=== PATIENT | female | born 1985 | race Caucasian/White ===

== ENCOUNTER 2024-11-30 08:45 | Outpatient (AMB) | payer OTHER, SELFPAY ==
--- NOTE | 2024-11-30 08:46 | A.OFFPC_ITS ---
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 Hypothyroidism: - History of thyroidectomy in [id number], currently on levothyroxine 224 mcg daily. Elevated Blood Pressure: - Noted during the visit, attributed to nervousness; no formal diagnosis of hypertension. Fatigue: - Reports persistent fatigue, unsure of cause; potential thyroid dysfunction or other deficiencies considered. Snoring: - Long-standing history of snoring since childhood; no prior evaluation or sleep study conducted. Impacted Earwax: - Right ear impacted with cerumen, affec ting visualization of the eardrum. Review of Systems - General: Reports fatigue, denies recen t weight loss or fever. - HEENT: Reports snoring, denies headach es upon waking. - Cardiovascular: Denies chest pain or p alpitations. - Respiratory: Denies dyspnea or cough. - Gastrointestinal: Denies constipation. 10-point ROS reviewed and negative excep t as noted in HPI Past Medical History - Hypothyroidism, post-thyroidectomy in 5927-2429. - Right hip pinning surgery at age 15 du e to hip dislocation. - Adenoidectomy in childhood due to recu rrent ear infections. Health Maintenance - Recommended home sleep study to evalua te for sleep apnea. - Referral to a dishwashing machine repairer for weight management. - Comprehensive metabolic panel and thyr oid function tests planned. Physical Exam General: Well-appearing, in no acute distress. Vital signs: Elevated blood pressure noted, possibly due to nervousness. HEENT: Normocephalic, atraumatic. PERRLA, EOMI. Conjunctiva clear, sclera anicteric. Oropharynx clear, mucous membranes moist. Right ear with impacted ear wax, TMs not visible on the right side. Neck: Supple, no lymphadenopathy, no thyromegaly, no JVD or carotid bruits. Cardiovascular: RRR, normal S1/S2, no murmurs, rubs, or gallops. Peripheral pulses 2+ and symmetric. No edema. Respiratory: Lungs clear to auscultation bilaterally, no wheezes, rales, or rhonchi. Normal effort. Abdomen: Soft, non-tender, non-distended. Normoactive bowel sounds. No hepatosplenomegaly, no masses. MSK: Full range of motion, no joint swelling or deformity. Normal gait. History of right hip pinning due to dislocation. Skin: Warm, dry, intact. No rashes, lesions, or pallor. Multiple birthmarks noted, especially on the back. Neuro: Alert and oriented x3. Cranial nerves II-XII intact. Strength 5/5 throughout. Sensation intact. Reflexes 2+ symmetric. Normal coordination and gait. Psych: Appropriate mood and affect. Normal judgment and insight. Reports feeling tired and recent headaches, mostly towards the end of the day. Reports snoring since childhood. Plan 1. Hypothyroidism - Continue current levothyroxine dosage; monitor thyroid function tests. 2. Elevated Blood Pressure - Monitor blood pressure; consider lifes tyle modifications if persistent. 3. Fatigue - Conduct comprehensive metabolic panel and thyroid function tests to identify potential causes. 4. Snoring - Recommend home sleep study to assess f or sleep apnea. 5. Impacted Earwax - Prescribe ear drops to soften cerumen; follow-up for ear cleaning. Discussion Notes During the visit, we discussed the importance of evaluating the patient's fatigue and snoring, potentially linked to sleep apnea. I recommended a home sleep study to assess for sleep apnea, which can contribute to fatigue and other health issues. We also talked about the need to monitor thyroid function and blood pressure, considering lifestyle modifications if necessary. The patient was informed about the impacted earwax and the use of ear drops to address it. We also discussed the referral to a dishwashing machine repairer for weight management and the importance of regular follow-up visits to monitor her health status. Patient was informed and verbally consented to the use of an ambient scribe for clinic note documentation during this visit. Patient Instructions - Continue taking levothyroxine as presc ribed. - Use prescribed ear drops to soften ear wax; follow-up for ear cleaning. - Schedule and complete the home sleep s tudy. - Monitor blood pressure at home and rep ort any persistent elevations. - Follow up with a dishwashing machine repairer for weig ht management. - Return for follow-up visit in two week s to review test results and progress. Total time spent caring for the patient today was 30 minutes. This includes , time spent documenting,medications, performing a medically necessary evaluation, counseling on diagnoses, care coordination, ordering appropriate tests. PFSH Family History (Updated 11/30/24 @ 08:56 by Ofe Arredondo MA) Father High blood pressure Mother High blood pressure Breast cancer Social History (Updated 11/30/24 @ 08:57 by Ofe Arredondo MA) Housing: House Alcohol intake: current Alcohol intake frequency: a few times a month Patient Tobacco Use Status: Never used Tobacco service: No Current occupational status: employed Cognitive needs: No Hearing needs: No Vision needs: Yes (rx glasses) Questionnaire PHQ-9 Over the last 2 weeks, how often have you been bothered by any of the following problems? 1. Little interest or pleasure in doing things: not at all 2. Feeling down, depressed, or hopeless: not at all 3. Trouble falling or staying asleep, or sleeping too much: not at all 4. Feeling tired or having little energy: several days 5. Poor appetite or overeating: not at all 6. Feeling bad about yourself - or that you are a failure or have let yourself or your family down: not at all 7. Trouble concentrating on things, such as reading the newspaper or watching television: not at all 8. Moving or speaking so slowly that other people could have noticed. Or the opposite - being so fidgety or restless that you have been moving around a lot more than usual: not at all 9. Thoughts that you would be better off or of hurting yourself in some way: not at all Total score: 1 Source: Developed by Drs. Dannie Reilly, Isabel Moeller, Rodrigo Bass and colleagues, with an educational bruce from [employer]. Thrive Questionnaire Date Thrive assessed: 11/30/24 I am a: Patient What is your living situation today?: I have a steady place to live Within the past 12 months, did the food you bought not last and you didn't have the money to get more?: Never true Within the past 12 months, did you worry whether your food would run out before you got money to buy more?: Never true Do you have trouble paying for medicines?: No Do you have trouble getting transportation to medical appointments?: No Do you have trouble paying your heating and electricity bill?: No Do you have trouble taking care of your child, family member or friend?: No Do you have trouble with day-to-day activities such as bathing, preparing meals, shopping, managing finances, etc.?: No Are you currently unemployed and looking for a job?: No Are you interested in more education?: No Please select the resources that you would like help with: None Currently or been in a relationship where the following occur: No concerns reported THRIVE Score: 0 AUDIT C Alcohol Use Questionnaire (AUDIT-C) 1. How often do you have a drink containing alcohol?: Monthly or less 2. How many drinks containing alcohol do you have on a typical day when you are drinking?: 1 or 2 3. How often do you have six or more drinks on one occasion?: Less than monthly Total Score: 2 LAMBERT-7 AMB Questionnaire LAMBERT-7 Date LAMBERT - 7 assessed: 11/30/24 Feeling nervous, anxious, or on edge: 1 = Several days Not being able to stop or control worryin = Not at all Worrying too much about different things: 0 = Not at all Trouble relaxin = Not at all Being so restless that it is hard to sit still: 0 = Not at all Becoming easily annoyed or irritable: 0 = Not at all Feeling afraid as if something awful might happen: 0 = Not at all Total LAMBERT-7 score (0-4 normal; 5-9 mild; 10-14 moderate; 15-21 severe): 1 Source: Developed by Drs. Dannie Reilly, Isabel Moeller, Rodrigo Bass and colleagues, with an educational bruce from [employer]. Physical exam (Primary Care) Vital Signs: Last Vital Signs Temp 98 F 11/30/24 08:50 Pulse 75 11/30/24 08:50 Resp 16 11/30/24 08:50 BP 166/96 H 11/30/24 08:50 Pulse Ox 98 11/30/24 08:50 Oxygen Delivery Method Room Air 11/30/24 08:50 BMI result Body Mass Index 40.2 Tobacco/Smoking Status: Tobacco use Status Tobacco use date assessed 11/30/24 11/30/24 08:49 Patient Tobacco Use Status Never used Tobacco 11/30/24 08:57 PHQ-9: PHQ-9 Score PHQ-9: Total score 1 11/30/24 08:49 Thrive Assessment: Date of Thrive Assessment Date Thrive assessed 11/30/24 11/30/24 08:49 Currently or been in a relationship where the following occur: No concerns reported Coding Level of Care Code New Pt Level 4 (59478) Diagnoses Hypothyroidism (acquired) E03.9 Snoring R06.83 Fatigue R53.83 Elevated blood pressure reading R03.0 Impacted cerumen of right ear H61.21 Morbidly obese E66.01 History of tympanostomy tube placement Z96.22 History of orthopedic surgery Z98.890 Assessment & Plan Assessment & Plan (1) Hypothyroidism (acquired): Code(s): E03.9 - Hypothyroidism, unspecified (2) Snoring: Code(s): R06.83 - Snoring (3) Fatigue: Code(s): R53.83 - Other fatigue (4) Elevated blood pressure reading: Code(s): R03.0 - Elevated blood-pressure reading, without diagnosis of hypertension (5) Impacted cerumen of right ear: Code(s): H61.21 - Impacted cerumen, right ear (6) Morbidly obese: Code(s): E66.01 - Morbid (severe) obesity due to excess calories (7) History of tympanostomy tube placement: Code(s): Z96.22 - Myringotomy tube(s) status (8) History of orthopedic surgery: Code(s): Z98.890 - Other specified postprocedural states Plan Orders: Orders Comprehensive Met. Panel Today Z13.9 - Encounter for screening, unspecified Hemoglobin A1c Today Z13.9 - Encounter for screening, unspecified Hepatitis C Antibody Today Z13.9 - Encounter for screening, unspecified HIV Ab/Ag Today Z13.9 - Encounter for screening, unspecified TSH reflex Free T4 Today Z13.9 - Encounter for screening, unspecified UA CC w/rflx Micro + Cult Today Z13.9 - Encounter for screening, unspecified Vitamin B12 and Folate Today Z13.9 - Encounter for screening, unspecified RT home sleep study Today E66.01 - Morbid (severe) obesity due to excess calories, R06.83 - Snoring, R53.83 - Other fatigue, T50.B95A - Adverse effect of other viral vaccines, initial encounter, Z13.9 - Encounter for screening, unspecified Complete Blood Count Auto Diff Today Z13.9 - Encounter for screening, unspecified Hepatitis B Surface Antibody Today Z13.9 - Encounter for screening, unspecified Hepatitis B Surface Antigen Today Z13.9 - Encounter for screening, unspecified Lipid Panel Today Z13.9 - Encounter for screening, unspecified Magnesium Today Z13.9 - Encounter for screening, unspecified Vitamin D 1,25 dihydroxy Today Z13.9 - Encounter for screening, unspecified Referrals Nutrition/Dietitian Referral E66.01 - Morbid (severe) obesity due to excess calories Medical Weight Management Referral E66.01 - Morbid (severe) obesity due to excess calories Medications: New carbamide peroxide 6.5% (Debrox) 5 drps otic (ears) Q12H 15 mL 0RF 4 days
[2024-11-30 08:50] VITALS: BP 166/96; PULSE 75; RESP 16; TEMP 36.6; O2SAT 98; BMI 40.2
== END 2024-11-30 09:20 | disposition home or self-care (01) ==
LOC: HO.HMCFMS 08:46
PROVIDERS: Visit Provider Student in an Organized Health Care Education/Training Program
DX: E03.9 Hypothyroidism, unspecified (principal); R06.83 Snoring; R53.83 Other fatigue; R03.0 Elevated blood-pressure reading, without diagnosis of hypertension; H61.21 Impacted cerumen, right ear; E66.01 Morbid (severe) obesity due to excess calories; Z96.22 Myringotomy tube(s) status; Z98.890 Other specified postprocedural states

== ENCOUNTER 2024-11-30 08:45 | Outpatient (REF) | payer MEDICAID, SELFPAY ==
--- OUTSIDE RECORDS SUMMARY | 2024-11-30 10:40 | XMS_ITS ---
Author Name [facility] Organization Unknown Care Team Organization Name Specialty Phone Email Start Date End Da te [facility] Termed, PROVIDER Primary Care 01/02/202209/25
[2024-11-30 13:32] LABS: MANUAL DIFF FLAG NO
[2024-11-30 13:44] LABS: Hematocrit 37.1 % (37.0-47.0); Hemoglobin 12.3 g/dl (12.0-16.0); Imm Gran Abs Auto 0.01 X10*3/uL (0.00-0.03); Imm Gran Pct Auto 0.2 % (0.0-0.4); Lymphocytes Absolute Auto 1.3 X10*3/uL (1.2-4.9); Mean Corpuscular HGB Conc 33.2 g/dl (31.0-35.0); Mean Corpuscular Hemoglobin 27.9 pg (27.0-33.0); Mean Corpuscular Volume 84.1 fL (80.0-98.0); NRBC Abs Auto 0.000 X10*3/uL (0.0-0.012); NRBC Pct Auto 0.0 /100WBC (0.0-0.2); Platelet Count 210 X10*3/uL (160-400); Red Blood Count 4.41 X10*6/uL (4.20-5.50); White Blood Count 5.2 X10*3/uL (4.8-10.8)
[2024-11-30 14:10] LABS: Appearance Urine Clear; Glucose Urine UA Negative (Negative); PH 7.0 (5.0-9.0); Specific Gravity - Urine 1.015 (1.005-1.025)
[2024-11-30 14:14] LABS: Alanine Aminotransferase 12 U/L (0-31); Albumin Level 4.2 g/dL (3.5-5.0); Alkaline Phosphatase 36 U/L (39-117); Anion Gap 10 (12-20); Aspartate Amino Transferase 20 U/L (5-31); Blood Urea Nitrogen 12 mg/dL (9-16); Calcium 8.5 mg/dL (8.4-10.2); Carbon Dioxide 28 mmol/L (22-29); Chloride 105 mmol/L (96-108); Cholesterol 202 mg/dL (<200); Estimated Glomerular Filt Rate > 60; HDL Cholesterol 44 mg/dL (>40); Magnesium 1.9 mg/dL (1.6-2.6); Potassium 3.8 mmol/L (3.3-5.1); Sodium 139 mmol/L (135-145); Total Protein 7.2 g/dL (6.5-8.0); Triglycerides 81 mg/dL (<150)
[2024-11-30 14:45] LABS: Folate 10.3 ng/mL (> or = 4.0); Vitamin B12 364 pg/mL (200-900)
[2024-12-01 08:14] LABS: HBS Num1 0.45 mIU/mL (0-7.99); HBsAGNum1 0.45 S/CO (0.00-0.99); HIV Num 1 0.06 S/CO (0.00-0.99); Hepatitis B Surface Antigen Negative (Negative); ~HepC Num1 0.13 S/CO (0.00-0.79); ~Hepatitis B Surface Antibody NONREACTIVE (Nonreactive); ~Hepatitis C Antibody Nonreactive (Nonreactive)
[2024-12-06 08:03] LABS: VITAMIN D (1,25 OH) D3 23 pg/mL; Vit D (1,25-Dihydroxy) Total 23 pg/mL (18-72); Vitamin D (1,25 OH) D2 <8 pg/mL
== END 2024-11-30 08:46 | disposition home or self-care (01) ==
LOC: HO.HKASLDS 08:45
PROVIDERS: PCP Student in an Organized Health Care Education/Training Program; Visit Provider Student in an Organized Health Care Education/Training Program
DX: Z13.9 Encounter for screening, unspecified (principal); R06.83 Snoring; R53.83 Other fatigue; E66.01 Morbid (severe) obesity due to excess calories; R03.0 Elevated blood-pressure reading, without diagnosis of hypertension; H61.21 Impacted cerumen, right ear; Z96.22 Myringotomy tube(s) status; Z98.890 Other specified postprocedural states; Z68.41 Body mass index [BMI] 40.0-44.9, adult
CPT/HCPCS: 36415; 80053; 80061; 81003; 82607; 82652; 82746; 83036; 83735; 84443; 85025; 86706; 86803; 87340; 87389

== ENCOUNTER 2025-01-06 12:46 | Outpatient (AMB) | payer OTHER, SELFPAY ==
--- NOTE | 2025-01-06 12:52 | A.OFFPC_ITS ---
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 Hypercholesterolemia: Recent non-fasting bloodwork showed a total cholesterol of 202 mg/dL and LDL cholesterol of 142 mg/dL. Cerumen Impaction: The patient was previously prescribed ear drops for an ear blockage but did not use them due to a temporary lapse in her insurance coverage. Medications: - Ear drops for cerumen impaction, presc ribed at a prior visit but not used. Social History: - Diet: May include daily intake of cynthia se and eggs. - Insurance: The patient experienced a t emporary cancellation of her insurance, which has since been reinstated. Diagnostic Results: - CBC: White blood cells, red blood cell s, hemoglobin, and platelets are normal. - CMP: Sodium, potassium, chloride, mary beth l function, calcium, magnesium, liver function, and total proteins are normal. - Hemoglobin A1c: Normal range, ruling o ut prediabetes and diabetes. - Lipid Panel (non-fasting): Triglycerid es 81 mg/dL, total cholesterol 202 mg/ dL, LDL cholesterol 142 mg/dL, HDL cholesterol >40 mg/dL. - Vitamin B12: 364. - Vitamin D: Normal. - Folate: Normal. - Thyroid function: Normal. - Urinalysis: Normal. - Infectious Disease Screen: Negative fo r Hepatitis B, Hepatitis C, and HIV. Past Medical History - Cerumen impaction of the ear. Health Maintenance - Lab results reviewed, with most findin gs within normal limits. - Dietary counseling provided to reduce daily intake of cheese and eggs in response to borderline high cholesterol levels. - Screening for Hepatitis B, Hepatitis C , and HIV were negative. [facility] Medical History (Updated 01/06/25 @ 20:47 by Madhu Marcelino MD) Morbid obesity due to excess calories Hypercholesterolemia Family History Father High blood pressure Mother High blood pressure Breast cancer Social History (Updated 01/06/25 @ 12:53 by Yon Garcia CMA) Housing: House Alcohol intake: current Alcohol intake frequency: a few times a month Patient Tobacco Use Status: Never used Tobacco service: No Current occupational status: employed Cognitive needs: No Hearing needs: No Vision needs: Yes (rx glasses) Questionnaire Thrive Questionnaire Date Thrive assessed: 11/30/24 I am a: Patient What is your living situation today?: I have a steady place to live Within the past 12 months, did the food you bought not last and you didn't have the money to get more?: Never true Within the past 12 months, did you worry whether your food would run out before you got money to buy more?: Never true Do you have trouble paying for medicines?: No Do you have trouble getting transportation to medical appointments?: No Do you have trouble paying your heating and electricity bill?: No Do you have trouble taking care of your child, family member or friend?: No Do you have trouble with day-to-day activities such as bathing, preparing meals, shopping, managing finances, etc.?: No Are you currently unemployed and looking for a job?: No Are you interested in more education?: No Please select the resources that you would like help with: None Currently or been in a relationship where the following occur: No concerns reported THRIVE Score: 0 LAMBERT-7 AMB Questionnaire LAMBERT-7 Date LAMBERT - 7 assessed: 11/30/24 Source: Developed by Drs. Dannie Reilly, Isabel Moeller, Rodrigo Bass and colleagues, with an educational bruce from [employer]. Review of Systems Narrative Review of Systems 10-point ROS reviewed and negative except as noted in HPI Physical exam (Primary Care) Vital Signs: Last Vital Signs Temp 98 F 01/06/25 12:53 Pulse 67 01/06/25 12:53 BP 142/93 H 01/06/25 12:53 Pulse Ox 100 01/06/25 12:53 Oxygen Delivery Method Room Air 01/06/25 12:53 BMI result Body Mass Index 40.0 Tobacco/Smoking Status: Tobacco use Status Tobacco use date assessed 11/30/24 01/06/25 12:56 Patient Tobacco Use Status Never used Tobacco 01/06/25 12:56 Thrive Assessment: Date of Thrive Assessment Date Thrive assessed 11/30/24 01/06/25 12:56 Currently or been in a relationship where the following occur: No concerns reported Narrative Physical Exam General: Well-appearing, in no acute distress. Vital signs: Within normal limits. HEENT: Normocephalic, atraumatic. PERRLA, EOMI. Conjunctiva clear, sclera anicteric. Oropharynx clear, mucous membranes moist. TMs intact bilaterally, but ear blockage noted. Patient advised to use ear drops, five drops in the morning and five drops at night, to break up the blockage. Neck: Supple, no lymphadenopathy, no thyromegaly, no JVD or carotid bruits. Cardiovascular: RRR, normal S1/S2, no murmurs, rubs, or gallops. Peripheral pulses 2+ and symmetric. No edema. Respiratory: Lungs clear to auscultation bilaterally, no wheezes, rales, or rhonchi. Normal effort. Abdomen: Soft, non-tender, non-distended. Normoactive bowel sounds. No hepatosplenomegaly, no masses. MSK: Full range of motion, no joint swelling or deformity. Normal gait. Skin: Warm, dry, intact. No rashes, lesions, or pallor. Neuro: Alert and oriented x3. Cranial nerves II-XII intact. Strength 5/5 throughout. Sensation intact. Reflexes 2+ symmetric. Normal coordination and gait. Psych: Appropriate mood and affect. Normal judgment and insight. Coding Level of Care Code Est Pt Level 3 (79402) Diagnoses Hypercholesterolemia E78.00 Impacted cerumen of right ear H61.21 Acquired hypothyroidism E03.9 Morbid obesity E66.01 Morbid obesity due to excess calories E66.01 Elevated blood pressure reading R03.0 Assessment & Plan Assessment & Plan (1) Hypercholesterolemia: Code(s): E78.00 - Pure hypercholesterolemia, unspecified Category: Medical (2) Impacted cerumen of right ear: Code(s): H61.21 - Impacted cerumen, right ear (3) Acquired hypothyroidism: Code(s): E03.9 - Hypothyroidism, unspecified (4) Morbid obesity: Code(s): E66.01 - Morbid (severe) obesity due to excess calories (5) Morbid obesity due to excess calories: Code(s): E66.01 - Morbid (severe) obesity due to excess calories Category: Medical (6) Elevated blood pressure reading: Code(s): R03.0 - Elevated blood-pressure reading, without diagnosis of hypertension Category: Medical Plan Consent Patient was informed and verbally consented to the use of an ambient scribe for clinic note documentation during this visit. Plan 1. Hypercholesterolemia - The patient's non-fasting total cholesterol was 202 mg/dL and LDL was 142 mg/dL. - Advised to reduce daily dietary intake of cheese and eggs. - Reassured the patient that her numbers are likely lower in a fasting state and not significantly concerning at this time. 2. Cerumen Impaction - Will resend the prescription for ear drops. - Instructed the patient to use five drops in the affected ear in the morning and five drops at night to soften the impaction. - A follow-up visit is planned for manual removal of the cerumen after a five- day course of drops. - The process may require a second session of drops and removal to clear the impaction completely and avoid injury. 3. Follow-Up On Referrals - The patient's prior referrals should have been received by the specialists despite the temporary insurance cancellation. - Staff will provide the patient with the specialists' phone numbers to facilitate scheduling. Discussion Notes I reviewed the patient's recent lab results with her and noted that the overall picture is great. We discussed her non-fasting lipid panel, which showed a total cholesterol of 202 and LDL of 142, and I explained that these values are likely lower in a fasting state. I recommended she reduce her daily intake of cheese and eggs but reassured her the numbers are not overly concerning. Upon examination, I confirmed a cerumen impaction in her ear. I will resend the prescription for ear drops and instructed her to use five drops in the morning and five at night for five days to soften the wax. I explained that she should return for removal and that the procedure might require more than one session to complete safely. We also discussed outstanding referrals, and I clarified that they should have been received by the specialists despite her previous insurance issues. I informed her that my staff would provide the necessary contact numbers for her to follow up. Patient Instructions - Your overall lab results are great. - Your cholesterol level was slightly high on this test, but you had eaten before the test. I recommend cutting down on daily cheese and fried eggs. - I am resending the prescription for your ear drops. Use five drops in the blocked ear in the morning and five drops at night for five days. - After using the drops for five days, please return to the office so I can remove the earwax. This may take more than one visit. - My office staff will give you the phone numbers for the specialist referrals. Please call them to schedule your appointments. Medical Decision Making The patient is a 39-year-old female presenting for a follow-up visit to review lab results. The majority of her laboratory findings, including a complete blood count, comprehensive metabolic panel, HbA1c, and vitamin levels, are within normal limits, indicating a good overall state of health. Her non-fasting lipid panel showed a total cholesterol of 202 mg/dL and an LDL of 142 mg/dL, which are borderline elevated. Given the non-fasting status of the sample, these values are likely overestimated, and pharmacological intervention is not warranted at this time; dietary counseling to reduce cholesterol intake is the appropriate initial step. Otoscopic examination confirmed a cerumen impaction, which the patient has been unable to treat due to a since-resolved insurance issue. The plan is to re- initiate treatment with cerumenolytic ear drops for five days, followed by in-of fice manual removal. A staged approach to removal, possibly requiring more than one session, is planned to minimize the risk of pain or injury to the external auditory canal. Administrative issues regarding prior specialist referrals were addressed, and the patient will be provided with contact information to facilitate scheduling, removing barriers to continued care. Total time spent caring for the patient today was 20 minutes. This includes time spent before the visit reviewing the chart, time spent documenting, and time spent reviewing laboratory results, diagnostic imaging, medications, performing a medically necessary evaluation, counseling on diagnoses, care coordination. Medications: New carbamide peroxide 6.5% (Debrox) 5 drps otic (ears) Q12H 15 mL 0RF 4 days Discontinued carbamide peroxide 6.5% (Debrox) Discontinued Reason: Doctor's Order 5 drps otic (ears) Q12H 4 days 15 mL 0RF
[2025-01-06 12:53] VITALS: BP 142/93; PULSE 67; TEMP 36.6; O2SAT 100; BMI 40.0
== END 2025-01-06 13:21 | disposition home or self-care (01) ==
LOC: HO.HMCFMS 12:47
PROVIDERS: PCP Student in an Organized Health Care Education/Training Program; Visit Provider Student in an Organized Health Care Education/Training Program
DX: E78.00 Pure hypercholesterolemia, unspecified (principal); H61.21 Impacted cerumen, right ear; E03.9 Hypothyroidism, unspecified; E66.01 Morbid (severe) obesity due to excess calories; R03.0 Elevated blood-pressure reading, without diagnosis of hypertension

== ENCOUNTER 2025-01-20 13:40 | Outpatient (AMB) | payer OTHER, SELFPAY ==
--- NOTE | 2025-01-20 13:42 | MHC.PC.OV ---
Vital Signs 01/20/25 13:46 Height 5 ft 9.29 in Weight 274 lb 8 oz BMI 40.2 BP 148/77 H Blood Pressure Location Rt brachial Position Sitting Respiration 18 Pulse 77 Pulse Source Monitor Temp 98.4 F Temp Source Oral Pulse Oximetry (%) 98 Oxygen Delivery Method Room Air Intake Visit Reasons: 2 wk f/u Intake Note: follow up Research Development Manager Required: No Accompanied by: Self / Same As Patient Allergies No Known Allergies Allergy (Verified 01/20/25 13:45) Medication List - Last Reconciled 01/20/25 by Madhu Marcelino MD levothyroxine (Levo-T) 224 mcg PO DAILY Tobacco use date assessed: 11/30/24 Dental Screening Dental Screen Date: 11/30/24 HPI HPI Comments History of Present Illness Details History of Present Illness The patient is a 39 year old individual presenting for follow-up of an ear issue. Cerumen Impaction: The patient presented for ear cleaning, having used Debrox as previously directed. The patient reports a lifelong history of ear problems. Hypercholesterolemia: Hypercholesterolemia was discussed during the last visit, and the patient has since scheduled follow-up appointments with referred specialists. Surgical History: - History of tympanostomy tube placement in the right ear. Medications: - The patient used Debrox prior to the visit. Past Medical History - Hypercholesterolemia - History of chronic ear problems Health Maintenance - The patient is following up on specialist referrals for hypercholesterolemia. [facility] Medical History (Updated 01/20/25 @ 13:54 by Madhu Marcelino MD) Impacted cerumen of right ear Morbid obesity due to excess calories Hypercholesterolemia Family History Father High blood pressure Mother High blood pressure Breast cancer Social History (Updated 01/20/25 @ 13:45 by Yon Garcia CMA) Housing: House Alcohol intake: current Alcohol intake frequency: a few times a month Patient Tobacco Use Status: Never used Tobacco e-Cigarette/Vaping Use: Never Used service: No Current occupational status: employed Cognitive needs: No Hearing needs: No Vision needs: Yes (rx glasses) Questionnaire Thrive Questionnaire Date Thrive assessed: 11/30/24 I am a: Patient What is your living situation today?: I have a steady place to live Within the past 12 months, did the food you bought not last and you didn't have the money to get more?: Never true Within the past 12 months, did you worry whether your food would run out before you got money to buy more?: Never true Do you have trouble paying for medicines?: No Do you have trouble getting transportation to medical appointments?: No Do you have trouble paying your heating and electricity bill?: No Do you have trouble taking care of your child, family member or friend?: No Do you have trouble with day-to-day activities such as bathing, preparing meals, shopping, managing finances, etc.?: No Are you currently unemployed and looking for a job?: No Are you interested in more education?: No Please select the resources that you would like help with: None Currently or been in a relationship where the following occur: No concerns reported THRIVE Score: 0 LAMBERT-7 AMB Questionnaire LAMBERT-7 Date LAMBERT - 7 assessed: 11/30/24 Source: Developed by Drs. Dannie Reilly, Isabel Moeller, Rodrigo Bass and colleagues, with an educational bruce from [employer]. Review of Systems Narrative Review of Systems - HEENT: Reports an unspecified issue with one ear and improved hearing post-procedure. - Denies ear pain. 10-point ROS reviewed and negative except as noted in HPI Physical exam (Primary Care) Vital Signs: Last Vital Signs Temp 98.4 F 01/20/25 13:46 Pulse 77 01/20/25 13:46 Resp 18 01/20/25 13:46 BP 148/77 H 01/20/25 13:46 Pulse Ox 98 01/20/25 13:46 Oxygen Delivery Method Room Air 01/20/25 13:46 BMI result Body Mass Index 40.2 Tobacco/Smoking Status: Tobacco use Status Tobacco use date assessed 11/30/24 01/20/25 13:44 Patient Tobacco Use Status Never used Tobacco 01/20/25 13:45 e-Cigarette/Vaping Use Never Used 01/20/25 13:47 Thrive Assessment: Date of Thrive Assessment Date Thrive assessed 11/30/24 01/20/25 13:44 Currently or been in a relationship where the following occur: No concerns reported Narrative Physical Exam General: Well-appearing, in no acute distress. Vital signs: Within normal limits. HEENT: Normocephalic, atraumatic. PERRLA, EOMI. Conjunctiva clear, sclera anicteric. Oropharynx clear, mucous membranes moist. TMs intact bilaterally with a T tube on the right ear, which is clean. Neck: Supple, no lymphadenopathy, no thyromegaly, no JVD or carotid bruits. Cardiovascular: RRR, normal S1/S2, no murmurs, rubs, or gallops. Peripheral pulses 2+ and symmetric. No edema. Respiratory: Lungs clear to auscultation bilaterally, no wheezes, rales, or rhonchi. Normal effort. Abdomen: Soft, non-tender, non-distended. Normoactive bowel sounds. No hepatosplenomegaly, no masses. MSK: Full range of motion, no joint swelling or deformity. Normal gait. Skin: Warm, dry, intact. No rashes, lesions, or pallor. Neuro: Alert and oriented x3. Cranial nerves II-XII intact. Strength 5/5 throughout. Sensation intact. Reflexes 2+ symmetric. Normal coordination and gait. Psych: Appropriate mood and affect. Normal judgment and insight. Coding Level of Care Code Est Pt Level 3 (06720) Diagnoses Impacted cerumen of right ear H61.21 Hypercholesterolemia E78.00 Morbid obesity due to excess calories E66.01 Elevated blood pressure reading R03.0 Assessment & Plan Assessment & Plan (1) Impacted cerumen of right ear: Code(s): H61.21 - Impacted cerumen, right ear Category: Medical (2) Hypercholesterolemia: Code(s): E78.00 - Pure hypercholesterolemia, unspecified Category: Medical (3) Morbid obesity due to excess calories: Code(s): E66.01 - Morbid (severe) obesity due to excess calories Category: Medical (4) Elevated blood pressure reading: Code(s): R03.0 - Elevated blood-pressure reading, without diagnosis of hypertension Category: Medical Plan Consent Patient was informed and verbally consented to the use of an ambient scribe for clinic note documentation during this visit. Plan 1. Cerumen Impaction - The patient had pre-treated with Debrox as instructed, which softened the wax. - Performed in-office cerumen removal from the right ear. - Post-procedure, the ear canal was noted to be clean, and the patient reported improved hearing. Discussion Notes I discussed the ear cleaning procedure with the patient. I explained that the pre-treatment with Debrox softened the cerumen, allowing for a quick and simple removal, and noted that without it, the procedure would have been more difficult. Following the procedure, I informed the patient that the ear canal was clean, and the patient confirmed subjective improvement in hearing. Patient Instructions - For any future ear cleanings, use Debrox beforehand as it helps soften the wax and makes removal easier. Medical Decision Making The patient, a 39-year-old individual with a history of chronic ear problems, presented for a follow-up appointment for an ear issue. The patient had appropriately used Debrox prior to the visit to soften the cerumen. On examination, a tympanostomy tube was noted in the right ear, and cerumen was present. The decision was made to proceed with an in-office cerumen removal, which was uncomplicated. Post-procedure examination confirmed a clean ear canal, and the patient reported immediate subjective improvement in hearing. Total Time Statement 20 min Total time spent caring for the patient today includes pre-visit chart review, documentation, review of laboratory and diagnostic imaging results, medication reconciliation, medically necessary evaluation, counseling on diagnoses, care coordination, ordering appropriate tests and medications, review of tests performed by other providers, reporting test results to the patient, and communication with other healthcare providers.
[2025-01-20 13:46] VITALS: BP 148/77; PULSE 77; RESP 18; TEMP 36.9; O2SAT 98; BMI 40.2
== END 2025-01-20 13:54 | disposition home or self-care (01) ==
LOC: HO.HMCFMS 13:41
PROVIDERS: PCP Student in an Organized Health Care Education/Training Program; Visit Provider Student in an Organized Health Care Education/Training Program
DX: H61.21 Impacted cerumen, right ear (principal); E78.00 Pure hypercholesterolemia, unspecified; E66.01 Morbid (severe) obesity due to excess calories; R03.0 Elevated blood-pressure reading, without diagnosis of hypertension